=== PATIENT | female | born 1965 ===

== ENCOUNTER 2018-07-04 00:26 | Emergency (ER) | payer SELFPAY ==
[2018-07-04] MEDS ORDERED: ZOFRAN ODT PO ONE (01:17)
[2018-07-04] MEDS ORDERED: ZOFRAN ONE (05:41)
[2018-07-04] MEDS ORDERED: ZOFRAN IV ONE ×2 (05:44→07:34)
[2018-07-04 06:12] LABS: Hematocrit 45.6 % (30.3-42.9); Hemoglobin 15.2 gm/dl (10.1-14.3); Mean Corpuscular HGB Conc 33 % (30-34); Mean Corpuscular Hemoglobin 32 pg (28-32); Mean Corpuscular Volume 96 fl (79-97); Red Blood Count 4.76 M/mm3 (3.65-5.03); Red Cell Distribution Width 14.7 % (13.2-15.2)
[2018-07-04 06:23] LABS: Alanine Aminotransferase 16 units/L (7-56); BUN/Creatinine Ratio 26; Blood Urea Nitrogen 18 mg/dL (7-17); Calcium 8.9 mg/dL (8.4-10.2); Hemolysis Index 60
[2018-07-04 07:32] LABS: Total Cells Counted 100
[2018-07-04 07:33] LABS: Anisocytosis 1+; Basophils % (Manual) 0 % (0.0-1.8); Eosinophils % (Manual) 0 % (0.0-4.3); Platelet Estimate Consistent w Auto
[2018-07-04] MEDS ORDERED: NACL 0.9% 1000 ML 1,000 ML IV ONE (07:33)
--- NOTE | 2018-07-04 07:33 | Emergency Department Report ---
Vomiting/Diarrhea - HPI Chief Complaint: Nausea/Vomiting/Diarrhea Stated Complaint: NAUSEA/VOMITING Time Seen by Provider: 07/04/18 07:32 Duration: last night Severity: moderate Nausea/Vomiting Severity: Moderate Diarrhea Severity: Mild Pain Location: Other (caregiver report patient does not seem to be in any pain but she is nonverbal.) Pain Severity: None Symptoms: Yes Watery Diarrhea, Yes Able to Tolerate Fluids, Yes Recent Unusual Foods, No Recent Untreated Water, No Recent use of Antibiotics, No Family w/ Similar Symptoms, No Contacts w/ Similar Symptoms, No Rash, No Hematuria, No Recent URI Symptoms Other History: Caregiver brought nonverbal patient to the hospital report patient with nausea and vomiting that started at 10 PM last night after eating [employer] restaurant. She reports that patient is nonverbal but does not seem to be in any pain. Reports the patient had 2 episodes of diarrhea last night without any blood. Denies vision without any fever . Denies patient moaning and groaning. Patient able to tolerate water. No medication given prior to coming to the hospital. ED Review of Systems ROS: Stated complaint: NAUSEA/VOMITING Other details as noted in HPI Constitutional: denies: fever Eyes: denies: eye pain, eye discharge, vision change ENT: denies: congestion Respiratory: denies: cough, shortness of breath, SOB with exertion, SOB at rest , stridor, wheezing Cardiovascular: denies: dyspnea on exertion, edema, syncope Gastrointestinal: vomiting, diarrhea. denies: constipation, hematemesis, melena , hematochezia Genitourinary: discharge. denies: hematuria Skin: denies: rash, lesions ED Past Medical Hx - Past Medical History Previous Medical History?: Yes Hx Diabetes: Yes Additional medical history: IDD - Surgical History Past Surgical History?: No - Family History Family history: no significant - Social History Smoking Status: Never Smoker Substance Use Type: None - Medications Home Medications: Home Medications Medication Instructions Recorded Confirmed Last Taken Type Dicyclomine [Bentyl] 20 mg PO Q8H 3 Days #9 tablet 07/04/18 Unknown Rx Ondansetron [Zofran Odt] 4 mg PO Q6H PRN #20 tab.rapdis 07/04/18 Unknown Rx Vomiting Diarrhea Exam - Exam General: Vital signs noted. No distress. Alert and acting appropriately. HEENT: Yes Moist Mucous Membranes (moist. Oral airways patent), No Pharyngeal Erythema, No Pharyngeal Exudates, No Rhinorrhea, No Conjuctival Injection, No Frontal Tenderness (no facial grimacing with palpation), No Maxillary Tenderness (no facial grimacing with palpation) Neck: No Adenopathy (full range of motion), No Rigidity Lungs: Yes Clear Lung Sounds, Yes Good Air Exchange, No Wheezes, No Stridor, No Cough, No Nasal Flaring, No Retractions, No Use of Accessory Muscles Heart exam: Regular: Yes, Murmur: No, Tachycardia: No Abdomen: Tenderness: No (nontender to palpate in all quadrants noted by no facial grimacing with palpation), Peritoneal Signs: No, Distention: No, Hyperactive Bowel sounds: No Skin exam: Rash: No, Edema: No, Normal turgor: Yes Neurologic: Alert and she is nonverbal. She is appropriate . She has mental disorder and does not speak Musculoskeletal: Unremarkable. ED Course Vital Signs 07/04/18 01:10 Temperature 99 F Pulse Rate 96 H Respiratory 20 Rate Blood Pressure 129/84 O2 Sat by Pulse 99 Oximetry - Reevaluation(s) Reevaluation #1: 07/04/18 08:56 Patient given normal saline 1 L IV fluid and emergency room. She was given Zofran a total of 8 mg ODT and 4 mg increments and another form of grams IV in emergency room. Her vomiting and diarrhea has been relieved. Patient vital signs stable, she is afebrile. She is nontoxic in appearance ED Medical Decision Making - Lab Data Result diagrams: 07/04/18 05:51 07/04/18 05:51 Lab Results 07/04/18 07/04/18 07/04/18 Range/Units 05:51 05:51 05:51 WBC 10.4 (4.5-11.0) K/mm3 RBC 4.76 (3.65-5.03) M/mm3 Hgb 15.2 H (10.1-14.3) gm/dl Hct 45.6 H (30.3-42.9) % MCV 96 (79-97) fl MCH 32 (28-32) pg MCHC 33 (30-34) % RDW 14.7 (13.2-15.2) % Plt Count 98 L (140-440) K/mm3 Add Manual Diff Complete Total Counted 100 Seg Neutrophils % Cattle Inspector Seg Neuts % (Manual) 50.0 (40.0-70.0) % Band Neutrophils % 29.0 % Lymphocytes % (Manual) 7.0 L (13.4-35.0) % Reactive Lymphs % (Man) 0 % Monocytes % (Manual) 10.0 H (0.0-7.3) % Eosinophils % (Manual) 0 (0.0-4.3) % Basophils % (Manual) 0 (0.0-1.8) % Metamyelocytes % 4.0 % Myelocytes % 0 % Promyelocytes % 0 % Blast Cells % 0 % Nucleated RBC % Not Reportable Seg Neutrophils # Man 5.2 (1.8-7.7) K/mm3 Band Neutrophils # 3.0 K/mm3 Lymphocytes # (Manual) 0.7 L (1.2-5.4) K/mm3 Abs React Lymphs (Man) 0.0 K/mm3 Monocytes # (Manual) 1.0 H (0.0-0.8) K/mm3 Eosinophils # (Manual) 0.0 (0.0-0.4) K/mm3 Basophils # (Manual) 0.0 (0.0-0.1) K/mm3 Metamyelocytes # 0.4 K/mm3 Myelocytes # 0.0 K/mm3 Promyelocytes # 0.0 K/mm3 Blast Cells # 0.0 K/mm3 WBC Morphology Not Reportable Hypersegmented Neuts Not Reportable Hyposegmented Neuts Not Reportable Hypogranular Neuts Not Reportable Smudge Cells Not Reportable Toxic Granulation Not Reportable Toxic Vacuolation Not Reportable Dohle Bodies Not Reportable Pelger-Huet Anomaly Not Reportable Geovany Rods Not Reportable Platelet Estimate Consistent w auto Clumped Platelets Not Reportable Plt Clumps, EDTA Not Reportable Large Platelets Not Reportable Giant Platelets Not Reportable Platelet Satelliting Not Reportable Plt Morphology Comment Not Reportable RBC Morphology Not Reportable Dimorphic RBCs Not Reportable Polychromasia Not Reportable Hypochromasia Not Reportable Poikilocytosis Not Reportable Anisocytosis 1+ Microcytosis Not Reportable Macrocytosis Not Reportable Spherocytes Not Reportable Pappenheimer Bodies Not Reportable Sickle Cells Not Reportable Target Cells Not Reportable Tear Drop Cells Not Reportable Ovalocytes Not Reportable Helmet Cells Not Reportable [place] Bodies Not Reportable [place] Rings Not Reportable Lauren Cells Not Reportable Bite Cells Not Reportable Crenated Cell Not Reportable Elliptocytes Not Reportable Acanthocytes (Spur) Not Reportable Rouleaux Not Reportable Hemoglobin C Crystals Not Reportable Schistocytes Not Reportable Malaria parasites Not Reportable Ashish Bodies Not Reportable Hem Pathologist Commnt No Sodium 143 (137-145) mmol/L Potassium 4.3 (3.6-5.0) mmol/L Chloride 102.0 (98-107) mmol/L Carbon Dioxide 28 (22-30) mmol/L Anion Gap 17 mmol/L BUN 18 H (7-17) mg/dL Creatinine 0.7 (0.7-1.2) mg/dL Estimated GFR > 60 ml/min BUN/Creatinine Ratio 26 % Glucose 166 H (65-100) mg/dL Calcium 8.9 (8.4-10.2) mg/dL Total Bilirubin 0.80 (0.1-1.2) mg/dL AST 27 (5-40) units/L ALT 16 (7-56) units/L Alkaline Phosphatase 70 (35-129) units/L Total Protein 6.8 (6.3-8.2) g/dL Albumin 4.0 (3.9-5) g/dL Albumin/Globulin Ratio 1.4 % Lipase 16 (13-60) units/L Critical care attestation.: If time is entered above; I have spent that time in minutes in the direct care of this critically ill patient, excluding procedure time. ED Disposition Clinical Impression: Nausea & vomiting Qualifiers: Vomiting type: unspecified Vomiting Intractability: non-intractable Qualified Code(s): R11.2 - Nausea with vomiting, unspecified Diarrhea Qualifiers: Diarrhea type: unspecified type Qualified Code(s): R19.7 - Diarrhea, unspecified Disposition: DC-01 TO HOME OR SELFCARE Is pt being admited?: No Does the pt Need Aspirin: No Condition: Stable Instructions: Acute Nausea and Vomiting (ED), Acute Diarrhea (ED), Nutrition Tips for Relief of Diarrhea (ED), Gastroenteritis (ED) Additional Instructions: Please take patient primary care physician tomorrow for follow-up visit vomiting and diarrhea after eating [place] food Patient's symptoms returned please return to the emergency room Please give the patient Zofran to prevent vomiting. Give patient diet to include bananas, rice, applesauce and toast over the next 72 hours. No spicy foods or carbonated beverages. Referrals: PRIMARY CARE,MD [Primary Care Provider] - 24 Hours Forms: Accompanied Note
[2018-07-04 07:35] LABS: Platelet Count 98 K/mm3 (140-440)
[2018-07-04 08:47] VITALS: BP 97/51
== END 2018-07-04 09:10 | disposition home or self-care (01) ==
LOC: ED 00:26
DX: R11.2 Nausea with vomiting, unspecified (principal); R19.7 Diarrhea, unspecified; E11.9 Type 2 diabetes mellitus without complications
CPT/HCPCS: 36415; 80053; 83690; 85007; 85025; 96361; 96374; 96376; 99283; J2405; J7030; Q0162